=== PATIENT | female | born 1950 | race Caucasian/White ===

== ENCOUNTER 2017-09-23 18:38 | Emergency (ER) | payer BC ==
[2017-09-23 19:15] LABS: #Basophils 0.1 thou/uL (0.0-0.2); #Eosinphils 0.1 thou/uL (0.0-0.7); #Lymphocytes 1.9 thou/uL (1.20-3.40); #Monocytes 0.3 thou/uL (0.11-0.59); #Neutrophils 4.3 thou/uL (1.40-6.50); %Eosinophils 1.5 % (0.0-10.0); %Lymphocytes 28.3 % (21.0-51.0); %Monocytes 4.9 % (0.0-10.0); %Neutrophils 64.2 % (42.0-75.0); Hemoglobin 14.2 g/dL (12.0-16.0); Mean Corpuscular HGB CONC 33.8 g/dL (32.0-36.0); Mean Corpuscular Hemoglobin 30.1 pg (27.0-31.0); Mean Corpuscular Volume 89.2 fl (81.0-99.0); Mean Platelet Volume 7.2 fL (7.4-10.4); Platelet Count 262 thou/uL (130-400); Red Blood Cell (RBC) Count 4.72 mill/uL (4.20-5.40); White Blood Cell (WBC) Count 6.6 thou/uL (4.8-10.8)
[2017-09-23 19:29] LABS: CK (CPK) 25 U/L (29-168); Lipase 12 U/L (8-78)
--- NOTE | 2017-09-23 19:30 | RAD ---
AP VIEW CHEST: INDICATIONS: Chest pain. COMPARISON: Prior CT thorax dated 12/04/2016. FINDINGS: Chronic deformity involving the lower chest wall is stable. Heart size is within normal limits. The re is prominent thoracolumbar scoliosis. No air space consolidation, pleural effusion, or pneumothor ax is evident. IMPRESSION: No acute cardiopulmonary abnormality demonstrated. POS: [facility]
[2017-09-23 19:31] LABS: CKMB 0.6 ng/mL (0-6.6); Troponin I Less than 0.010 ng/mL (< 0.028)
[2017-09-23 19:53] LABS: Anion Gap 12 mmol/L (10-20); BUN (Urea Nitrogen) 13 mg/dL (9.8-20.1); Calc. Creatinine Clearance 0 mL/min (70-130); Calcium 10.1 mg/dL (7.8-10.44); Carbon Dioxide 26 mmol/L (23-31); Chloride 105 mmol/L (98-107); Estimated GFR-MDRD 90; Glucose 89 mg/dL (80-115); Potassium 4.2 mmol/L (3.5-5.1); Sodium 139 mmol/L (136-145)
[2017-09-23 21:24] LABS: Troponin I Less than 0.010 ng/mL (< 0.028)
== END 2017-09-23 21:44 | disposition home or self-care (01) ==
LOC: SCSER 18:38
DX: R07.9 Chest pain, unspecified (principal); J45.909 Unspecified asthma, uncomplicated; Z79.899 Other long term (current) drug therapy
CPT/HCPCS: 36415; 71045; 80048; 82553; 83690; 84484; 85025; 93005

== ENCOUNTER 2018-02-17 15:15 | Outpatient (CLI) | payer BC | END 2018-02-17 15:16 | disposition home or self-care (01) | LOC: BICMAMMO 15:15 | PROVIDERS: ATTEND Family Medicine | DX: Z12.31 Encounter for screening mammogram for malignant neoplasm of breast (principal); R92.1 Mammographic calcification found on diagnostic imaging of breast; Z80.3 Family history of malignant neoplasm of breast | CPT/HCPCS: 77063; 77067 ==

== ENCOUNTER 2019-01-08 14:40 | Outpatient (CLI) | payer BC ==
--- NOTE | 2019-01-08 15:30 | MMO ---
Left Breast MAMMO Unilat Diag DDI LT+WALDO. CLINICAL HISTORY: Patient is 68 years old and is seen for diagnostic exam. The patient has the following family history of breast cancer: mother, at age 38. The patient has no personal history of cancer. VIEWS: The views performed were: left craniocaudal with tomosynthesis; left mediolateral oblique with tomosynthesis; and left mediolateral with tomosynthesis. FILMS COMPARED: The present examination has been compared to prior imaging studies performed at [facility] on 05/05/2002, and at [facility] on 03/07/2009, 12/21/2011 and 02/17/2018. MAMMOGRAM FINDINGS: There are scattered fibroglandular densities. There are no suspicious masses, suspicious calcifications, or new areas of architectural distortion. IMPRESSION: THERE IS NO MAMMOGRAPHIC EVIDENCE OF MALIGNANCY. A ROUTINE FOLLOW-UP MAMMOGRAM IN 1 MONTH IS RECOMMENDED. THE RESULTS OF THIS EXAM WERE SENT TO THE PATIENT. ACR BI-RADS Category 1 - Negative MAMMOGRAPHY NOTE: 1. A negative mammogram report should not delay a biopsy if a dominant of clinically suspicious mass is present. 2. Approximately 10% to 15% of breast cancers are not detected by mammography. 3. Adenosis and dense breasts may obscure an underlying neoplasm. Reported by: Noreen MALLOY Electonically Signed: [id number]
== END 2019-01-08 14:41 | disposition home or self-care (01) ==
LOC: BICMAMMO 14:40
PROVIDERS: ATTEND Nurse Practitioner Family
DX: N63.20 Unspecified lump in the left breast, unspecified quadrant (principal); Z80.3 Family history of malignant neoplasm of breast
CPT/HCPCS: 77066; G0279

== ENCOUNTER 2021-11-16 08:27 | Outpatient (CLI) | payer MEDICARE, BC | END 2021-11-16 08:28 | disposition home or self-care (01) | LOC: BICMAMMO 08:27 | PROVIDERS: ATTEND Family Medicine | DX: N63.11 Unspecified lump in the right breast, upper outer quadrant (principal) | CPT/HCPCS: 76642; 77065; G0279 ==